=== PATIENT | female | born 1950 | race African-American/Black ===

== ENCOUNTER 2023-07-07 06:35 | Day surgery (SDC) | payer MEDICARE, OTHER ==
[~2023-07-07] VITALS: Ht 170.2 cm; Wt 51.8 kg
[~2023-07-07 06:35] MED LIST: AMLO-257 PO; BENA-16 PO; MONT-35 PO; PANT-31 PO
[2023-07-07] MEDS ORDERED: LIDOCAINE 2% 11 ML JELLY TP ONE (06:36)
[2023-07-07] MEDS ORDERED: BENZOCAINE 20% 50 MCG/SPRAY 57 GM TP ONE (06:36)
[2023-07-07] MEDS ORDERED: LIDOCAINE 4% 50 ML SOLUTION TP ONE (06:36)
[2023-07-07] MEDS ORDERED: SODIUM CHLORIDE 0.9% 1,000 ML IV ONE (07:00)
[2023-07-07] MEDS ORDERED: SODIUM CHLORIDE 0.9% 1,000 ML ONE (07:42)
[2023-07-07] MEDS ORDERED: FentaNYL CITRATE PF 100 MCG/2 ML VIAL ONE (08:28)
[2023-07-07] MEDS ORDERED: MIDAZOLAM HCL 2 MG/2 ML VIAL ONE (08:28)
[2023-07-07 09:23] VITALS: PULSE 76; RESP 19; O2SAT 100
[2023-07-07] MEDS ORDERED: MethylPREDNISolone SOD SUCC 125 MG/2 ML VIAL IVP ONE (09:30)
== END 2023-07-07 11:20 | disposition home or self-care (01) ==
LOC: SURGERY 06:35
PROVIDERS: ATTEND Internal Medicine Critical Care Medicine
DX: J38.4 Edema of larynx (principal); B37.0 Candidal stomatitis; J43.9 Emphysema, unspecified; I10 Essential (primary) hypertension; Z79.899 Other long term (current) drug therapy; Z98.890 Other specified postprocedural states
CPT/HCPCS: 31625; 88112; 87206; 87101; 87220; 87070; 88305; 88342; 31623; 31624; 71045; 87015; 88341; J3010; J2250; Q9967; J7030; Z7610